=== PATIENT | female | born 1960 | race Caucasian/White ===

== ENCOUNTER 2022-01-03 20:02 | Emergency (ER) | payer OTHER, SELFPAY ==
[2022-01-03] VITALS (12 sets, daily range): BP systolic 66–155; BP diastolic 42–89; PULSE 55–69; RESP 16–20; TEMP 36.7–36.8; O2SAT 92–97; BMI 20.9
--- NOTE | 2022-01-03 20:14 | XR_ITS ---
PROCEDURE INFORMATION: Exam: XR Left Wrist Exam date and time: 01/03/2022 8:13 PM Age: 61 years old Clinical indication: Injury or trauma; Fall; Blunt trauma (contusions or hematomas); Wrist; Left; Injury date: 01/03/2022; Additional info: Fall earlier today, pain and swelling of left wrist TECHNIQUE: Imaging protocol: Radiologic exam of the Left wrist. Views: 3 or more views. COMPARISON: No relevant prior studies available. FINDINGS: Bones/joints: Comminuted displaced distal radius fracture. Dorsal displacement the fracture fragments.. Degenerative changes in the radiocarpal joint Soft tissues: Soft tissue swelling of the wrist. IMPRESSION: 1. Comminuted displaced distal radius fracture. Dorsal displacement the fracture fragments.. 2. Soft tissue swelling of the wrist.
--- NOTE | 2022-01-03 20:34 | HMH.EDUPEXT ---
Discharge Plan Disposition Chief Complaint: Extremity Injury, Upper Prescriptions Prescriptions: No Action sertraline 25 mg tablet 25 mg PO DAILY Label Comments: TAKE 1 TABLET BY MOUTH ONCE DAILY lovastatin 20 mg tablet 20 mg PO DAILY Label Comments: TAKE 1 TABLET BY MOUTH ONCE DAILY WITH EVENING MEAL Referrals Follow up/Referrals: Armando Santos MD [Primary Care Provider] - See instructions Clinical Impressions Clinical Impression: Fracture of wrist Instructions Patient Instructions: DI for Distal Radius Fracture Discharge ED Provider: Chet Khoury Upper Extremity HPI General Chief Complaint: Extremity Injury, Upper Stated Complaint: ao @home Injured L wrist Time Seen by Provider: 01/03/22 20:05 Mode of Arrival: Ambulatory Source of Information: Patient, Relative and Medical Record Limitations: No Limitations Description of Symptoms (Recalled from ER Triage Doc. by RN): pt stated shew fell today about 10am after losing her footing and fell on her left wrist the pt stated that she didnt have any swelling at the time of the incident but that after she took a nap the left wrist looks swollen and there is alot of pain present History of Present Illness HPI narrative: trip fall this am with acute lt wrist injury complaint: injury to: left and wrist Onset (ago): hour(s) Other Extremity Injury: Left: wrist Other injuries: face Handedness: right Place: home Severity: moderate Context: fall Associated symptoms: denies other symptoms Related Data Home Medications Medication Instructions Recorded Confirmed lovastatin 20 mg tablet 20 mg PO DAILY High cholesterol 01/03/22 01/03/22 sertraline 25 mg tablet 25 mg PO DAILY Depression 01/03/22 01/03/22 Allergies Allergy/AdvReac Type Severity Reaction Status Date / Time azithromycin Allergy Verified 01/03/22 21:35 Penicillins Allergy Verified 01/03/22 21:35 prednisone Allergy Verified 01/03/22 21:35 PFS PFS Social History Smoking Status: Current every day smoker alcohol intake: never current occupational status: employed Travel in the last 8 weeks: None ROS Obtained: Yes All systems reviewed & no additional complaints except as documented Physical Exam General General appearance: alert Head Head exam: normocephalic Eye Eye exam: Present PERRL and EOMI ENT ENT exam: Present mucous membranes moist Neck Neck exam: Present full ROM Respiratory Respiratory exam: Absent respiratory distress Cardiovascular Cardiovascular exam: Present regular rate Expanded Upper Extremity Exam Left: Elbow exam: Present normal inspection Forearm/Wrist exam: Present tenderness, swelling and deformity; Absent full ROM or tenderness over anatomical snuff box Neuromotor exam: Normal wrist extension Vascular exam: Normal radial pulse Neurological Exam Neurological exam: Present alert and CN II-XII intact Psychiatric Psychiatric exam: Present normal affect Skin Skin exam: Absent rash Medical Decision Making Medical Records Medical records reviewed: Yes I reviewed the patient's medical records. Edu Inquiry Pt receiving controlled substance: No Vital Signs: 01/03/22 20:04 Temperature 98.1 F Temperature Source Oral Pulse Rate [Right] 69 Respiratory Rate 16 Blood Pressure [Right Arm] 142/89 H Blood Pressure Mean [Right Arm] 106 02 Sat by Pulse Oximetry 97 Oxygen Delivery Method Room Air Lab Data Lab results reviewed: Yes I reviewed the patient's lab results. Orders (Tests/Meds): ED MEDICATIONS Discontinued Medications Generic Name Dose Route Start Last Admin Trade Name Darionq PRN Reason Stop Dose Admin Midazolam HCl 2 mg 01/03/22 21:28 01/03/22 21:49 Midazolam 2mg/2ml Vial IV 01/03/22 21:29 2 mg ONCE ONE Administration Morphine Sulfate 4 mg 01/03/22 21:19 01/03/22 21:45 Morphine 4mg/Ml Syringe IV 01/03/22 21:20 4 mg ONCE ONE Adm
--- NOTE | 2022-01-03 21:19 | PC.NURSE ---
Verbal order from Dr. Khoury for Morphine 4mg IVP. As well as set up for conscious sedation consent and will prepare Versed 2mg IV for the procedure to reduce L wrist fx. Pt already moved to and placed on cardiac and hemodynamic monitoring
--- NOTE | 2022-01-03 21:55 | PC.NURSE ---
@ 2144 pt gave consent for reduction and medications to aid in reduction. discussed procedure. Pt, MD, and this RN signed consent, and then pt given Morphine for pain control. @2147 time out taken. Pt airway clear. She is already placed on tele, BP, and continuous pulse ox. @2148 Pt given Versed 2mg IVP for procedure. @2149 MD reducing L wrist fx. and short arm splint placed by MD and staff. @2153 Reduction and splint placed @2199 BP decreased from baseline SBP 65-68. MD ordered NS 1,000ml bolus. @2201 pt sat 88-89%, placed on 2LPM, sat increased to 94%. She is talking and reports mild pain to L arm and drowsiness. @2204 Placed 1L NS to pt. @2209 Pressure bag applied to 1L NS @2214 BP 107/67. Pt more awake, talking very clearly. Sling applied to L arm @2219 BP 126/78. Ice pack placed to L arm. She is sitting up in bed, Very alert and oriented andstates she is ready to go home. Let MD know.
== END 2022-01-03 23:11 | disposition home or self-care (01) ==
PROVIDERS: Emergency Provider Emergency Medicine; PCP Pediatrics
DX: S52.502A Unspecified fracture of the lower end of left radius, initial encounter for closed fracture (principal); W19.XXXA Unspecified fall, initial encounter; Z79.899 Other long term (current) drug therapy; Z88.0 Allergy status to penicillin; Z88.1 Allergy status to other antibiotic agents; Z88.8 Allergy status to other drugs, medicaments and biological substances; F32.A Depression, unspecified
CPT/HCPCS: 29126; 73110; 96374; 96375; 99284

== ENCOUNTER 2023-12-31 08:46 | Emergency (ER) | payer MEDICARE, SELFPAY ==
[2023-12-31 08:47] VITALS: BP 139/91; PULSE 76; RESP 17; TEMP 36.6; O2SAT 97; BMI 18.6
--- NOTE | 2023-12-31 08:51 | PC.NURSE ---
Dr. Leon at [facility] for pt eval
--- NOTE | 2023-12-31 09:00 | HMH.EDGENADL ---
Discharge Plan Disposition Patient Disposition: Home, Self-Care Prescriptions Prescriptions: New methocarbamol 500 mg tablet 1,000 mg PO Q8H PRN (Reason: back pain) Qty: 90 0RF lidocaine 5 % adhesive patch,medicated 1 patch topical DAILY Qty: 15 0RF Rx Instructions: leave on most painful area for up to 12 hrs No Action sertraline 25 mg tablet 25 mg PO DAILY Patient Comments: TAKE 1 TABLET BY MOUTH ONCE DAILY lovastatin 20 mg tablet 20 mg PO DAILY Patient Comments: TAKE 1 TABLET BY MOUTH ONCE DAILY WITH EVENING MEAL Referrals Follow up/Referrals: Armando Santos MD [Primary Care Provider] - See instructions Activity Restrictions/Add. Instructions Additional Instructions/Restrictions: Take Tylenol 1000 mg every 6 hours and ibuprofen 400 mg every 6 hours for pain. Use muscle relaxers as needed. Use lidocaine patches as needed. Please return emerged part with any new, concerning, or worsening symptoms including but not limited to numbness ordered tingling or weakness of legs or groin, difficulty urinating, urinating or pooping on yourself, inability to walk. Clinical Impressions Clinical Impression: Back pain Qualifiers: Back pain location: low back pain Chronicity: acute Back pain laterality: right Sciatica presence: without sciatica Qualified Code(s): M54.50 - Low back pain, unspecified Instructions Patient Instructions: DI for Chronic Pain -- Adult Print Language Print Language: [place] Discharge ED Provider: Armando Leon General Adult HPI General Stated complaint: back pain Time Seen by Provider: 12/31/23 08:49 Mode of Arrival: Ambulatory Source of Information: Patient Limitations: No Limitations History of Present Illness HPI narrative: This is a 63-year-old female with a history of chronic back pain who presents with acute on chronic right-sided back pain. States that she obtained an injury at work 10 to 15 years ago and had a flareup of the pain yesterday. Reports that it is on the right side of her back and that she has to pull her muscles to the side to get any relief. Denies any numbness or tingling of legs or groin. Denies any difficulty urinating or urinary/fecal incontinence. Denies any difficulty walking due to weakness. Related Data Home Medications ?Medication ?Instructions ?Recorded ?Confirmed lovastatin 20 mg tablet 20 mg PO DAILY High cholesterol 01/03/22 01/03/22 sertraline 25 mg tablet 25 mg PO DAILY Depression 01/03/22 01/03/22 Previous Rx's ?Medication ?Instructions ?Recorded lidocaine 5 % topical patch 1 patch topical DAILY #15 ea 12/31/23 methocarbamol 500 mg tablet 1,000 mg (2 x 500 mg) PO Q8H PRN 12/31/23 back pain #90 tabs Allergies Allergy/AdvReac Type Severity Reaction Status Date / Time azithromycin Allergy Verified 01/03/22 21:35 Penicillins Allergy Verified 01/03/22 21:35 prednisone Allergy Verified 01/03/22 21:35 [facility] Disclaimer: The information contained in this section may have been updated after the patient was seen, as this information can be updated by other users. Social History (Updated 01/03/22 @ 22:02 by Chet Khoury MD) Smoking Status: Current every day smoker alcohol intake: never current occupational status: employed Travel in the last 8 weeks: None ROS Obtained: Yes All systems reviewed & no additional complaints except as documented Physical Exam General General appearance: alert and in no apparent distress Eye Eye exam: Present normal appearance, PERRL and EOMI Respiratory Respiratory exam: Present normal lung sounds bilaterally; Absent respiratory distress Cardiovascular Cardiovascular exam: Present regular rate and normal rhythm Abdominal Exam Abdominal exam: Present soft and distention; Absent tenderness, guarding or rebound Extremities Exam Extremities exam: Present normal inspection and tenderness (R paraspinal muscles) Neurological Exam Neurological exam: Present alert and oriented X3 Skin Skin exam: Present warm and dry Medical Decision Making Medical Records Medical records reviewed: Yes I reviewed the patient's medical records. Screening: Per USPSTF and CDC recommendations, given the prevalence of disease in our region, it is our hospital?s policy to screen for HIV and viral Hepatitis for all patients aged 18 and over and those with ongoing risk factors. Edu Inquiry Pt receiving controlled substance: No Orders (Tests/Meds): ED MEDICATIONS Generic Name Dose Route Start Last Admin Trade Name Freq PRN Reason Stop Dose Admin Acetaminophen 1,000 mg 12/31/23 08:57 Acetaminophen 500mg Tab PO 12/31/23 08:58 ONCE ONE Methocarbamol 1,000 mg 12/31/23 08:58 Methocarbamol 500mg Tablet PO 12/31/23 08:59 ONCE ONE Medical Decision Narrative: In summary, this 63-year-old female with a history of chronic back pain presents to the emergency department today with acute on chronic right sided back pain that began yesterday. On initial evaluation patient is afebrile, hemodynamically stable, nontoxic-appearing, no focal neurological deficits. Differential diagnosis includes but is not limited to muscle strain, spasm, disc herniation, cauda equina. No red flag symptoms at presentation and neurologically intact. Had paraspinal musculature spasm on the right side. Patient received Tylenol and Robaxin for treatment. Patient was prescribed Robaxin and lidocaine patches for outpatient management. She did not have a PCP and was given information to establish herself with PCP. Instructed on additional symptomatic therapy with Tylenol and NSAIDs. Appropriate for discharge at this time. Critical Care Critical Care Time Critical Care Time: No
[2023-12-31] MEDS: METHOCARBAMOL 500MG TABLET 1000 MG PO (09:10)
[2023-12-31] MEDS: ACETAMINOPHEN 500MG TAB 1000 MG PO (09:11)
--- NOTE | 2023-12-31 09:11 | PC.NURSE ---
spoke to Britta in [facility] for pre auth for lidocaine patch prescription
[2023-12-31 09:32] VITALS: BP 114/72; PULSE 68; RESP 18; TEMP 36.6; O2SAT 97
[2023-12-31] MEDS: LIDOCAINE 5% TRANSDERMAL PATCH 1 EACH TP (09:33)
== END 2023-12-31 09:36 | disposition home or self-care (01) ==
LOC: ER 09:04
PROVIDERS: Emergency Provider Student in an Organized Health Care Education/Training Program; PCP Pediatrics
DX: M54.9 Dorsalgia, unspecified (principal); M54.50 Low back pain, unspecified
CPT/HCPCS: 99282

== ENCOUNTER 2024-03-28 08:57 | Emergency (ER) | payer MEDICARE, SELFPAY ==
[2024-03-28 09:15] VITALS: BP 106/73; PULSE 74; RESP 19; TEMP 36.8; O2SAT 94; BMI 20.6
--- NOTE | 2024-03-28 09:24 | ED_ITS ---
Discharge Plan Disposition Patient Disposition: Home, Self-Care Condition: Good Prescriptions Prescriptions: New ciprofloxacin HCl [Cipro] 500 mg tablet 500 mg PO Q12H 3 Days Qty: 6 0RF guaifenesin 400 mg tablet 400 mg PO Q4H PRN (Reason: cough) Qty: 60 0RF Referrals Follow up/Referrals: Jagdish Roche DO [Primary Care Provider] - See instructions Activity Restrictions/Add. Instructions Additional Instructions/Restrictions: Take medication as prescribed. If symptoms persist or worsen, return to clinic/PCP. UTI *Increase fluids. Water not Soda or Tea *Start antibiotic immediately and be sure to take as ordered for the FULL length of time although you should start to see improvement over the next 48 hours If so , follow up with your primary physician to review urine culture and ensure that antibiotic is adequate for infection *Be SURE to follow up anytime for new or worsening symptoms with your family doctor. AND in 48 hours for urine culture results with your family doctor, if you do not have a doctor then you may call back to the [facility] for urine culture results and further treatment. We do recommend that you choose and establish care with a Primary Care Physician. ?AND follow up with them ?in 10-14 days to repeat UA to ensure infection is resolved and blood no longer present *Be sure to let your PCP know that we sent urine cultures from the [facility] so they can follow up to ensure that you area the on the correct antibiotic Call your doctor office and make appointment for 48 hours (2 days from today) ?to follow up and get the results of your urine culture and further treatment Clinical Impressions Clinical Impression: UTI (urinary tract infection) Qualifiers: Urinary tract infection type: acute cystitis Hematuria presence: with hematuria Qualified Code(s): N30.01 - Acute cystitis with hematuria Cough Qualifiers: Cough type: acute Qualified Code(s): R05.1 - Acute cough Instructions Patient Instructions: DI for Urinary Tract Infection (UTI), DI for Cough -- Adult Print Language Print Language: Greek Discharge ED Provider: Yelena Turner [facility] [place] General Stated complaint: SOA and poss uti Time Seen by Provider: 03/28/24 09:24 History of Present Illness Provider Complaint: Pt reports that she has had some low back pain for that past few days. She states that she has had a bad cough and every time she coughs she is urinating on herself. Related Data Previous Rx's ?Medication ?Instructions ?Recorded ciprofloxacin HCl 500 mg tablet 500 mg PO Q12H 3 days #6 tabs 03/28/24 (Cipro) guaifenesin 400 mg tablet 400 mg PO Q4H PRN cough #60 tabs 03/28/24 Allergies Allergy/AdvReac Type Severity Reaction Status Date / Time azithromycin Allergy Verified 01/03/22 21:35 Penicillins Allergy Verified 01/03/22 21:35 prednisone Allergy Verified 01/03/22 21:35 [facility] Disclaimer: The information contained in this section may have been updated after the patient was seen, as this information can be updated by other users. Medical History (Updated 03/28/24 @ 09:40 by Yelena Turner APRN) UTI (urinary tract infection) Depression Anxiety COPD (chronic obstructive pulmonary disease) Surgical History (Updated 03/28/24 @ 09:33 by Naty Lr RN) History of tonsillectomy History of tubal ligation History of hysterectomy Social History (Updated 01/03/22 @ 22:02 by Chet Khoury MD) Smoking Status: Current every day smoker alcohol intake: never current occupational status: employed Travel in the last 8 weeks: None Have you lived/traveled outside [place] in past 30 days?: No Contact w/someone who lives/traveled outside US past 30 days?: No Exposure to someone with infectious disease in past 14 days?: No Do you have a fever (greater than 100.4 F or 38 C)?: No Have you tested positive for COVID-19: No Exposed to someone with COVID-19 in past 14 days?: No Do you have a sore throat?: No Do you have a cough?: No Do you have any weakness?: No Do you have any diarrhea?: No Are you experiencing any unusual bleeding?: No Do you have any muscle aches/pain?: No Do you have any abdominal pain?: Yes Are you experiencing loss of taste or smell?: No ROS Obtained: Yes All systems reviewed & no additional complaints except as documented Constitutional Constitutional: Reports system reviewed and no additional complaints, except as documented Eyes Eyes: Reports system reviewed and no additional complaints, except as documented ENT Ears, Nose, Mouth, and Throat: Reports system reviewed and no additional complaints, except as documented Cardiovascular Cardiovascular: Reports system reviewed and no additional complaints, except as documented Respiratory Respiratory: Reports system reviewed and no additional complaints, except as documented and Reports non-productive cough Comments: current smoker Gastrointestinal Gastrointestingal: Reports system reviewed and no additional complaints, except as documented Genitourinary Female Genitourinary: Reports system reviewed and no additional complaints, except as documented, Reports urinary frequency, Reports urinary incontinence and Reports urinary urgency Musculoskeletal Musculoskeletal: Reports system reviewed and no additional complaints, except as documented and Reports back pain Integumentary/Breasts Skin/Breast: Reports system reviewed and no additional complaints, except as documented Neurologic Neurologic: Reports system reviewed and no additional complaints, except as documented Endocrine Endocrine: Reports system reviewed and no additional complaints, except as documented Hematologic/Lymphatic Henatologic/Lymphatic: Reports system reviewed and no additional complaints, except as documented Allergic/Immunologic Allergic/Immunologic: Reports system reviewed and no additional complaints, except as documented Physical Exam General General appearance: alert and in no apparent distress Head Head exam: atraumatic and normocephalic Eye Eye exam: Present normal appearance ENT ENT exam: Present normal exam and mucous membranes moist Neck Neck exam: Present normal inspection; Absent lymphadenopathy Chest Chest inspection: Present normal inspection and symmetric chest wall rise Respiratory Respiratory exam: Present normal lung sounds bilaterally Cardiovascular Cardiovascular exam: Present regular rate and normal rhythm Abdominal Exam Abdominal exam: Present soft and normal bowel sounds; Absent distention, tenderness or guarding Extremities Exam Extremities exam: Present normal inspection Back Exam Back exam: Absent CVA tenderness (R) or CVA tenderness (L) Neurological Exam Neurological exam: Present alert and oriented X3 Psychiatric Psychiatric exam: Present normal affect and normal mood Skin Skin exam: Present warm, dry and intact Lymphatic Lymphatic Findings: no adenopathy Medical Decision Making Medical Records Screening: Per USPSTF and CDC recommendations, given the prevalence of disease in our region, it is our hospital?s policy to screen for HIV and viral Hepatitis for all patients aged 18 and over and those with ongoing risk factors. Edu Inquiry Pt receiving controlled substance: No Edu was queried for this patient: No
[2024-03-28 09:25] LABS: Apearance,Urine Turbid (Clear); Bilirubin,Urine Negative (Negative); Blood, Urine Trace (Negative); Color,Urine Dark Yellow (Yellow); Glucose,Urine (UA) Negative (Negative); Ketones,Urine Negative (Negative); Protein,Urine Negative (Negative); UTC Leukocyte Esterase,Urine Trace (Negative); UTC Nitrate,Urine Positive (Negative); Urobilinogen,Urine 2 EU/dl (0.2)
[2024-03-28 09:41] VITALS: BP 106/73; PULSE 74; RESP 19; TEMP 36.8; O2SAT 94
--- NOTE | 2024-03-30 08:05 | PC.NURSE ---
URINE CULTURE REVIEWED WITH Guillaume GARCIAS APRN, NO CHANGES NEEDED AT THIS TIME
== END 2024-03-28 09:44 | disposition home or self-care (01) ==
PROVIDERS: Emergency Provider Nurse Practitioner Family; PCP Internal Medicine
DX: N30.01 Acute cystitis with hematuria (principal); R05.1 Acute cough
CPT/HCPCS: 81003; 87086; 87088; 87186; 99213; G0381